=== PATIENT | female | born 2000 | race African-American/Black ===

== ENCOUNTER 2022-03-28 19:43 | Emergency (ER) | payer OTHER, SELFPAY ==
[2022-03-28] MEDS ORDERED: Lidocaine 1% MPF 2 ML VIAL ONE (22:44)
[2022-03-28] MEDS ORDERED: cefTRIAXone\\ROCEPHIN 500 MG VIAL ONE (22:44)
[2022-03-28] MEDS ORDERED: Dexamethasone 4 MG TAB ONE (22:48)
[2022-03-29 13:23] LABS: Chlamydia by PCR Not Detected (NotDetected); GC by PCR Not Detected (NotDetected)
[2022-03-30 16:04] LABS: Ref Lab Test Ordered GC/CHLAM THROAT; Reference Lab Name LABCORP
== END 2022-03-28 23:02 | disposition home or self-care (01) ==
LOC: ERS 19:43
DX: J02.9 Acute pharyngitis, unspecified (principal)
CPT/HCPCS: 87081; 87430; 87491; 87591; 96372; 99283; J0696; J8540

== ENCOUNTER 2022-08-06 16:50 | Emergency (ER) | payer SELFPAY | END 2022-08-06 23:05 | disposition left against medical advice (07) | LOC: ERS 16:50 | DX: Z53.21 Procedure and treatment not carried out due to patient leaving prior to being seen by health care provider (principal) ==

== ENCOUNTER 2023-04-29 16:19 | Emergency (ER) | payer BC, SELFPAY ==
[2023-04-29] MEDS ORDERED: Boostrix 0.5 ML (Tdap) VIAL (>/=7 yrs of age) ONE (17:30)
== END 2023-04-29 18:10 | disposition home or self-care (01) ==
LOC: ERS 16:19
DX: S91.301D Unspecified open wound, right foot, subsequent encounter (principal); F17.210 Nicotine dependence, cigarettes, uncomplicated; W22.8XXA Striking against or struck by other objects, initial encounter
CPT/HCPCS: 90471; 90715; 99283

== ENCOUNTER 2025-04-05 15:01 | Emergency (ER) | payer BC | END 2025-04-05 16:56 | disposition left against medical advice (07) | LOC: ERS 15:01 | DX: Z53.21 Procedure and treatment not carried out due to patient leaving prior to being seen by health care provider (principal) | CPT/HCPCS: 71046; 87428 ==

== ENCOUNTER 2025-04-05 19:04 | Emergency (ER) | payer BC | END 2025-04-05 22:20 | disposition home or self-care (01) | LOC: ERS 19:04 | DX: R05.9 Cough, unspecified (principal); R06.2 Wheezing; F17.290 Nicotine dependence, other tobacco product, uncomplicated | CPT/HCPCS: 99283 ==

== ENCOUNTER 2025-04-30 21:46 | Emergency (ER) | payer BC | END 2025-04-30 22:20 | disposition left against medical advice (07) | LOC: ERS 21:46 | DX: Z53.21 Procedure and treatment not carried out due to patient leaving prior to being seen by health care provider (principal) ==